=== PATIENT | male | born 1990 | race Caucasian/White ===

== ENCOUNTER 2019-02-01 17:22 | Emergency (ER) | payer BC ==
[~2019-02-01] VITALS: Ht 182.8 cm; Wt 79.4 kg
[~2019-02-01 17:22] MED LIST: BACTRIM DS 8001 TA1 PO; CATAFLAM50 MG PO; FLOMAX0.4 MG PO; MEDROL DOSEPAK4 MG PO; MOTRIN800 MG PO; Motrin,Rufen800 MG PO; NKHM; NORCO 5-325 TA1 EACH PO; PERCOCET 325 MG1 TA2 PO
== END 2019-02-01 19:06 | disposition home or self-care (01) ==
LOC: ED 17:22
DX: S96.912A Strain of unspecified muscle and tendon at ankle and foot level, left foot, initial encounter (principal); Z79.899 Other long term (current) drug therapy; X50.1XXA Overexertion from prolonged static or awkward postures, initial encounter; Y93.89 Activity, other specified; Y92.098 Other place in other non-institutional residence as the place of occurrence of the external cause; Y99.8 Other external cause status

== ENCOUNTER 2019-06-12 05:41 | Emergency (ER) | payer BC ==
[~2019-06-12] VITALS: Ht 182.8 cm; Wt 81.6 kg
== END 2019-06-12 06:33 | disposition home or self-care (01) ==
LOC: ED 05:41
DX: S01.511A Laceration without foreign body of lip, initial encounter (principal); F10.929 Alcohol use, unspecified with intoxication, unspecified; F41.1 Generalized anxiety disorder; Z03.818 Encounter for observation for suspected exposure to other biological agents ruled out; Y90.9 Presence of alcohol in blood, level not specified; X58.XXXA Exposure to other specified factors, initial encounter; Y93.89 Activity, other specified; Y92.89 Other specified places as the place of occurrence of the external cause; Y99.0 Civilian activity done for income or pay

== ENCOUNTER → 2020-02-15 | Outpatient (CLI) | payer BC | END | disposition home or self-care (01) | LOC: COVID19 12:37 | PROVIDERS: ATTEND Social Worker Clinical | DX: Z20.828 Contact with and (suspected) exposure to other viral communicable diseases (principal) ==